=== PATIENT | female | born 1950 | race Caucasian/White ===

== ENCOUNTER 2019-01-14 00:47 | Emergency (ER) | payer BC, MEDICARE ==
--- NOTE | 2019-01-14 01:26 | EDM.PDOC ---
ED HPI GENERAL MEDICAL PROBLEM - General Chief Complaint: Cardiovascular Problem Stated Complaint: IRREGULAR HEARTBEAT Time Seen by Provider: 01/14/19 01:25 Source of Information: Reports: Patient, Old Records, RN History Limitations: Reports: No Limitations - History of Present Illness INITIAL COMMENTS - FREE TEXT/NARRATIVE: 68 yo female presents with a rapid, irregular pulse since about 11:30 pm tonight. She has had this several times in the past, but when she tried to come to the ER 2 yrs ago with this her rhythm reverted back to normal as she approached the hospital. She has on her own been taking a baby aspirin every other day. Her [id number] Score is 2 for her age and sex. No chest pain or SOB. She is taking she says a slightly larger dose of thyroid medicine than was advised due to weight gain on the lesser dose. She does not drink ETOH heavy. She has no known valvular heart dz. Onset Date: 01/13/19 Onset Time: 23:30 Duration: Minutes:, Constant Location: Reports: Chest Quality: Reports: Other (no pain) Severity: Moderate Improves with: Reports: None, Other (in the past this would resolve on its own. 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: Other (see below) (none) - Related Data Allergies Allergy/AdvReac Type Severity Reaction Status Date / Time No Known Allergies Allergy Verified 01/14/19 01:09 Home Meds: Home Meds Aspirin [Halfprin] 81 mg PO ASDIRECTED 01/14/19 [History] Levothyroxine 175 mcg PO DAILY 01/14/19 [History] Past Medical History Cardiovascular History: Reports: High Cholesterol Endocrine/Metabolic History: Reports: Hypothyroidism Social & Family History - Tobacco Use Smoking Status *Q: Never Smoker - Recreational Drug Use Recreational Drug Use: No ED ROS GENERAL - Review of Systems Review Of Systems: See Below Constitutional: Reports: No Symptoms HEENT: Reports: No Symptoms Respiratory: Reports: No Symptoms Cardiovascular: Reports: Palpitations Endocrine: Reports: No Symptoms GI/Abdominal: Reports: No Symptoms : Reports: No Symptoms Musculoskeletal: Reports: No Symptoms Skin: Reports: No Symptoms Neurological: Reports: No Symptoms Psychiatric: Reports: No Symptoms ED EXAM, GENERAL - Physical Exam Exam: See Below Exam Limited By: No Limitations General Appearance: Alert, WD/WN, No Apparent Distress Eye Exam: Bilateral Eye: Normal Inspection Ears: Normal External Exam, Normal Canal, Hearing Grossly Normal Ear Exam: Bilateral Ear: Auricle Normal, Canal Normal Nose: Normal Inspection, No Blood Throat/Mouth: Normal Inspection, Normal Lips, Normal Oropharynx, Normal Voice, No Airway Compromise Head: Atraumatic, Normocephalic Neck: Normal Inspection Respiratory/Chest: No Respiratory Distress, Lungs Clear, Normal Breath Sounds, No Accessory Muscle Use Cardiovascular: Regular Rate, Rhythm, No Edema GI/Abdominal: Normal Bowel Sounds, Soft, Non-Tender, No Distention Back Exam: Normal Inspection. No: CVA Tenderness (R), CVA Tenderness (L) Extremities: Normal Inspection, Normal Range of Motion, Non-Tender, No Pedal Edema Neurological: Alert, Oriented, CN II-XII Intact, Normal Cognition, No Motor/ Sensory Deficits Psychiatric: Normal Affect, Normal Mood Skin Exam: Warm, Dry, Intact, Normal Color, No Rash EKG INTERPRETATION EKG Date: 01/14/19 Time: 01:10 Rhythm: A-Fib Rate (Beats/Min): 136 [place]: Normal P-Wave: Absent QRS: Normal ST-T: Normal QT: Normal Comparison: Change From Previous EKG (afib has replaced NSR.) Course - Vital Signs Last Recorded V/S: Last Vital Signs Temp 36.1 C 01/14/19 01:11 Pulse 116 H 01/14/19 02:30 Resp 16 01/14/19 02:30 BP 153/79 H 01/14/19 02:30 Pulse Ox 97 01/14/19 02:30 - Orders/Labs/Meds Orders: Active Orders 24 hr Category Date Time Status Cardiac Monitoring [RC] .As Directed Care 01/14/19 00:52 Active EKG Documentation Completion [RC] ASDIRECTED Care 01/14/19 01:58 Active Sodium Chloride 0.9% [Saline Flush] Med 01/14/19 01:50 Active 10 ml FLUSH ASDIRECTED PRN Saline Lock Insert [OM.PC] Routine Oth 01/14/19 01:50 Ordered EKG 12 Lead [EK] Routine Ther 01/14/19 01:58 Ordered Medication Orders Sodium Chloride (Saline Flush) 10 ml FLUSH ASDIRECTED PRN PRN Reason: Keep Vein Open Last Admin: 01/14/19 02:04 Dose: 10 ml Labs: Laboratory Tests 01/14/19 01/14/19 Range/Units 01:40 01:40 Sodium 142 (140-148) mmol/L Potassium 3.9 (3.6-5.2) mmol/L Chloride 104 (100-108) mmol/L Carbon Dioxide 27 (21-32) mmol/L Anion Gap 10.6 (5.0-14.0) mmol/L BUN 13 (7-18) mg/dL Creatinine 0.8 (0.6-1.0) mg/dL Est Cr Clr Drug Dosing TNP Estimated GFR (MDRD) > 60 (>60) Glucose 129 H (74-106) mg/dL Calcium 9.4 (8.5-10.1) mg/dL Troponin I < 0.017 (0.000-0.056) ng/mL TSH, Ultra Sensitive 0.137 L (0.358-3.740) uIU/mL Meds: Medications Generic Name Dose Route Start Last Admin Trade Name Freq PRN Reason Stop Dose Admin Sodium Chloride 10 ml 01/14/19 01:50 01/14/19 02:04 Saline Flush FLUSH 10 ml ASDIRECTED PRN Administration Keep Vein Open Discontinued Medications Generic Name Dose Route Start Last Admin Trade Name Freq PRN Reason Stop Dose Admin Apixaban 5 mg 01/14/19 01:57 01/14/19 02:04 Eliquis PO 01/14/19 01:58 5 mg ONETIME ONE Administration Metoprolol Tartrate 5 mg 01/14/19 01:50 01/14/19 02:03 Lopressor IVPUSH 01/14/19 01:51 5 mg ONETIME ONE Administration Metoprolol Tartrate 5 mg 01/14/19 02:14 01/14/19 02:20 Lopressor IVPUSH 01/14/19 02:15 5 mg ONETIME ONE Administration Metoprolol Tartrate 50 mg 01/14/19 02:14 01/14/19 02:19 Lopressor PO 01/14/19 02:15 50 mg ONETIME ONE Administration Metoprolol Tartrate 50 mg 01/14/19 03:01 Lopressor PO 01/14/19 03:02 ONETIME ONE Departure - Departure Time of Disposition: 03:15 Disposition: Home, Self-Care 01 Condition: Good Clinical Impression: Atrial fibrillation with RVR Instructions: Atrial Fibrillation, [id number], Preventing Atrial Fibrillation -Related Stroke Referrals: Ev Cruz PA [Primary Care Provider] - Forms: ED Department Discharge Additional Instructions: Take Eliquis 5 mg roughly every 12 hrs. Take metoprolol succinate 200 mg today late morning and then roughly every 24 hrs. Return for an ECHO(echocardiogram). 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 Call [phone] for the [facility] in [place]. Asked for cardiology and you will be transferred. This is where you can set up an appt. If your appt is more than a week in the future, then make an appt with your family doctor for recheck in the interim. - My Orders Last 24 Hours: My Active Orders 01/14/19 00:52 Cardiac Monitoring [RC] .As Directed 01/14/19 01:50 Sodium Chloride 0.9% [Saline Flush] 10 ml FLUSH ASDIRECTED PRN Saline Lock Insert [OM.PC] Routine 01/14/19 01:58 EKG Documentation Completion [RC] ASDIRECTED EKG 12 Lead [EK] Routine - Assessment/Plan Last 24 Hours: My Active Orders 01/14/19 00:52 Cardiac Monitoring [RC] .As Directed 01/14/19 01:50 Sodium Chloride 0.9% [Saline Flush] 10 ml FLUSH ASDIRECTED PRN Saline Lock Insert [OM.PC] Routine 01/14/19 01:58 EKG Documentation Completion [RC] ASDIRECTED EKG 12 Lead [EK] Routine
[2019-01-14] MEDS ORDERED: Metoprolol Tartrate 5 MG/5 ML SDV IVPUSH ONE ×2 (01:50→02:14)
[2019-01-14] MEDS ORDERED: Sodium Chloride 0.9% 10 ML Syringe FLUSH PRN (01:50)
[2019-01-14] MEDS ORDERED: Apixaban 5 MG Tab PO ONE (01:57)
[2019-01-14] MEDS ORDERED: Metoprolol Tartrate 50 MG Tab PO ONE ×2 (02:14→03:01)
[2019-01-14 03:09] VITALS: BP 158/82
== END 2019-01-14 03:42 | disposition home or self-care (01) ==
LOC: JP.ED 00:47
DX: I48.91 Unspecified atrial fibrillation (principal); E78.00 Pure hypercholesterolemia, unspecified; E03.9 Hypothyroidism, unspecified; Z79.82 Long term (current) use of aspirin; Z79.899 Other long term (current) drug therapy
CPT/HCPCS: 36415; 80048; 84443; 84484; 93005; 96374; 99285-25; A9270-GY; J3490

== ENCOUNTER 2020-06-28 18:57 | Emergency (ER) | payer MEDICARE ==
--- NOTE | 2020-06-28 19:23 | EDM.PDOC ---
ED HPI GENERAL MEDICAL PROBLEM - General Chief Complaint: Cardiovascular Problem Stated Complaint: AFIB Time Seen by Provider: 06/28/20 19:22 Source of Information: Reports: Patient, Significant Other History Limitations: Reports: No Limitations - History of Present Illness INITIAL COMMENTS - FREE TEXT/NARRATIVE: presents w/palpations. Took metoprolol and T4 today. Onset: Today Onset Date: 06/28/20 Onset Time: 15:00 Severity: Moderate Associated Symptoms: Reports: No Other Symptoms. Denies: Diaphoresis, Nausea/Vomiting, Shortness of Breath, Syncope, Weakness - Related Data Allergies Allergy/AdvReac Type Severity Reaction Status Date / Time No Known Allergies Allergy Verified 06/28/20 19:15 Home Meds: Home Meds Apixaban [Eliquis] 5 mg PO Q12H #60 tablet 01/14/19 [Rx] Levothyroxine 163 mcg PO DAILY 01/14/19 [History] Albuterol Sulfate [Proair Hfa] 2 puff INH QID PRN 06/28/20 [History] Metoprolol Succinate [Toprol XL] 100 mg PO DAILY 06/28/20 [History] Past Medical History Cardiovascular History: Reports: High Cholesterol Endocrine/Metabolic History: Reports: Hypothyroidism Social & Family History - Tobacco Use Smoking Status *Q: Never Smoker - Caffeine Use Caffeine Use: Reports: None - Recreational Drug Use Recreational Drug Use: No ED ROS GENERAL - Review of Systems Review Of Systems: See Below Constitutional: Denies: Fever, Weakness, Diaphoresis HEENT: Reports: No Symptoms Respiratory: Reports: No Symptoms Cardiovascular: Reports: Other (tachycardia). Denies: Chest Pain, Dyspnea on Exertion Endocrine: Reports: No Symptoms GI/Abdominal: Denies: Abdominal Pain ED EXAM, GENERAL - Physical Exam Exam: See Below Exam Limited By: No Limitations General Appearance: Alert, No Apparent Distress Throat/Mouth: Normal Inspection Head: Atraumatic Neck: Normal Inspection Respiratory/Chest: No Respiratory Distress, Lungs Clear Cardiovascular: Normal Peripheral Pulses, Tachycardia GI/Abdominal: Soft, Non-Tender Extremities: Normal Inspection, Normal Range of Motion, No Pedal Edema Neurological: Alert, Oriented Psychiatric: Normal Affect, Normal Mood Skin Exam: Warm, Dry EKG INTERPRETATION EKG Date: 06/28/20 Time: 19:15 Rhythm: A-Fib Rate (Beats/Min): 134 [place]: Normal EKG Interpretation Comments: At. Fib w/ RVR and occasional PVC. Course - Vital Signs Last Recorded V/S: Last Vital Signs Temp 36.8 C 06/28/20 19:20 Pulse 70 06/28/20 20:30 Resp 17 06/28/20 19:52 BP 123/62 06/28/20 20:30 Pulse Ox 97 06/28/20 19:52 - Orders/Labs/Meds Orders: Active Orders 24 hr Category Date Time Status EKG Documentation Completion [RC] ASDIRECTED Care 06/28/20 19:35 Active Sodium Chloride 0.9% [Normal Saline] 1,000 ml Med 06/28/20 19:45 Active IV ASDIRECTED EKG 12 Lead [EK] Urgent Ther 06/28/20 19:34 Ordered Medication Orders Sodium Chloride (Normal Saline) 1,000 mls @ 500 mls/hr IV ASDIRECTED ROSSY Last Admin: 06/28/20 19:52 Dose: 500 mls/hr Documented by: JANAY Labs: Laboratory Tests 06/28/20 06/28/20 06/28/20 Range/Units 19:40 19:40 19:40 WBC 7.8 (4.5-11.0) K/uL RBC 5.03 (3.30-5.50) M/uL Hgb 14.6 (12.0-15.0) g/dL Hct 45.1 (36.0-48.0) % MCV 90 (80-98) fL MCH 29 (27-31) pg MCHC 32 (32-36) % Plt Count 196 (150-400) K/uL PT 10.6 (9.5-12.0) sec INR 0.97 (0.80-1.20) Sodium (140-148) mmol/L Potassium (3.6-5.2) mmol/L Chloride (100-108) mmol/L Carbon Dioxide (21-32) mmol/L Anion Gap (5.0-14.0) mmol/L BUN (7-18) mg/dL Creatinine (0.6-1.0) mg/dL Est Cr Clr Drug Dosing mL/min Estimated GFR (MDRD) (>60) Glucose (74-106) mg/dL Lactic Acid (0.4-2.0) mmol/L Calcium (8.5-10.1) mg/dL Magnesium (1.8-2.4) mg/dL Total Bilirubin (0.2-1.0) mg/dL AST (15-37) U/L ALT (12-78) U/L Alkaline Phosphatase (46-116) U/L Troponin I 0.024 (0.000-0.056) ng/mL NT-Pro-B Natriuret Pep (5-125) pg/mL Total Protein (6.4-8.2) g/dL Albumin (3.4-5.0) g/dL Globulin (2.3-3.5) g/dL Albumin/Globulin Ratio (1.2-2.2) Free T4 (0.76-1.46) ng/dL TSH, Ultra Sensitive (0.358-3.740) uIU/mL Urine Color (YELLOW) Urine Appearance (CLEAR) Urine pH (5.0-8.0) Ur Specific [place] (1.008-1.030) Urine Protein (NEGATIVE) mg/dL Urine Glucose (UA) (NEGATIVE) mg/dL Urine Ketones (NEGATIVE) mg/dL Urine Occult Blood (NEGATIVE) Urine Nitrite (NEGATIVE) Urine Bilirubin (NEGATIVE) Urine Urobilinogen (0.2-1.0) EU/dL Ur Leukocyte Esterase (NEGATIVE) Urine RBC (0-5) Urine WBC (0-5) Ur Epithelial Cells Amorphous Sediment Urine Bacteria Urine Mucus Urine Opiates Screen (NEGATIVE) Ur Oxycodone Screen (NEGATIVE) Urine Methadone Screen (NEGATIVE) Ur Propoxyphene Screen (NEGATIVE) Ur Barbiturates Screen (NEGATIVE) Ur Tricyclics Screen (NEGATIVE) Ur Phencyclidine Scrn (NEGATIVE) Ur Amphetamine Screen (NEGATIVE) U Methamphetamines Scrn (NEGATIVE) Urine MDMA Screen (NEGATIVE) U Benzodiazepines Scrn (NEGATIVE) U Cocaine Metab Screen (NEGATIVE) U Marijuana (THC) Screen (NEGATIVE) 06/28/20 06/28/20 06/28/20 Range/Units 19:40 19:40 19:40 WBC (4.5-11.0) K/uL RBC (3.30-5.50) M/uL Hgb (12.0-15.0) g/dL Hct (36.0-48.0) % MCV (80-98) fL MCH (27-31) pg MCHC (32-36) % Plt Count (150-400) K/uL PT (9.5-12.0) sec INR (0.80-1.20) Sodium 143 (140-148) mmol/L Potassium 3.8 (3.6-5.2) mmol/L Chloride 105 (100-108) mmol/L Carbon Dioxide 27 (21-32) mmol/L Anion Gap 11.1 (5.0-14.0) mmol/L BUN 13 (7-18) mg/dL Creatinine 0.9 (0.6-1.0) mg/dL Est Cr Clr Drug Dosing 49.49 mL/min Estimated GFR (MDRD) > 60 (>60) Glucose 111 H (74-106) mg/dL Lactic Acid 1.1 (0.4-2.0) mmol/L Calcium 9.1 (8.5-10.1) mg/dL Magnesium 2.3 (1.8-2.4) mg/dL Total Bilirubin 0.4 (0.2-1.0) mg/dL AST 20 (15-37) U/L ALT 31 (12-78) U/L Alkaline Phosphatase 101 (46-116) U/L Troponin I (0.000-0.056) ng/mL NT-Pro-B Natriuret Pep 441 H (5-125) pg/mL Total Protein 7.3 (6.4-8.2) g/dL Albumin 3.8 (3.4-5.0) g/dL Globulin 3.5 (2.3-3.5) g/dL Albumin/Globulin Ratio 1.1 L (1.2-2.2) Free T4 1.84 H (0.76-1.46) ng/dL TSH, Ultra Sensitive 0.030 L (0.358-3.740) uIU/mL Urine Color (YELLOW) Urine Appearance (CLEAR) Urine pH (5.0-8.0) Ur Specific [place] (1.008-1.030) Urine Protein (NEGATIVE) mg/dL Urine Glucose (UA) (NEGATIVE) mg/dL Urine Ketones (NEGATIVE) mg/dL Urine Occult Blood (NEGATIVE) Urine Nitrite (NEGATIVE) Urine Bilirubin (NEGATIVE) Urine Urobilinogen (0.2-1.0) EU/dL Ur Leukocyte Esterase (NEGATIVE) Urine RBC (0-5) Urine WBC (0-5) Ur Epithelial Cells Amorphous Sediment Urine Bacteria Urine Mucus Urine Opiates Screen (NEGATIVE) Ur Oxycodone Screen (NEGATIVE) Urine Methadone Screen (NEGATIVE) Ur Propoxyphene Screen (NEGATIVE) Ur Barbiturates Screen (NEGATIVE) Ur Tricyclics Screen (NEGATIVE) Ur Phencyclidine Scrn (NEGATIVE) Ur Amphetamine Screen (NEGATIVE) U Methamphetamines Scrn (NEGATIVE) Urine MDMA Screen (NEGATIVE) U Benzodiazepines Scrn (NEGATIVE) U Cocaine Metab Screen (NEGATIVE) U Marijuana (THC) Screen (NEGATIVE) 06/28/20 06/28/20 Range/Units 19:48 19:48 WBC (4.5-11.0) K/uL RBC (3.30-5.50) M/uL Hgb (12.0-15.0) g/dL Hct (36.0-48.0) % MCV (80-98) fL MCH (27-31) pg MCHC (32-36) % Plt Count (150-400) K/uL PT (9.5-12.0) sec INR (0.80-1.20) Sodium (140-148) mmol/L Potassium (3.6-5.2) mmol/L Chloride (100-108) mmol/L Carbon Dioxide (21-32) mmol/L Anion Gap (5.0-14.0) mmol/L BUN (7-18) mg/dL Creatinine (0.6-1.0) mg/dL Est Cr Clr Drug Dosing mL/min Estimated GFR (MDRD) (>60) Glucose (74-106) mg/dL Lactic Acid (0.4-2.0) mmol/L Calcium (8.5-10.1) mg/dL Magnesium (1.8-2.4) mg/dL Total Bilirubin (0.2-1.0) mg/dL AST (15-37) U/L ALT (12-78) U/L Alkaline Phosphatase (46-116) U/L Troponin I (0.000-0.056) ng/mL NT-Pro-B Natriuret Pep (5-125) pg/mL Total Protein (6.4-8.2) g/dL Albumin (3.4-5.0) g/dL Globulin (2.3-3.5) g/dL Albumin/Globulin Ratio (1.2-2.2) Free T4 (0.76-1.46) ng/dL TSH, Ultra Sensitive (0.358-3.740) uIU/mL Urine Color Yellow (YELLOW) Urine Appearance Clear (CLEAR) Urine pH 5.5 (5.0-8.0) Ur Specific [place] 1.015 (1.008-1.030) Urine Protein Negative (NEGATIVE) mg/dL Urine Glucose (UA) Negative (NEGATIVE) mg/dL Urine Ketones Trace H (NEGATIVE) mg/dL Urine Occult Blood Negative (NEGATIVE) Urine Nitrite Negative (NEGATIVE) Urine Bilirubin Negative (NEGATIVE) Urine Urobilinogen 0.2 (0.2-1.0) EU/dL Ur Leukocyte Esterase Negative (NEGATIVE) Urine RBC 0-5 (0-5) Urine WBC 0-5 (0-5) Ur Epithelial Cells Rare Amorphous Sediment Not seen Urine Bacteria Not seen Urine Mucus Not seen Urine Opiates Screen Negative (NEGATIVE) Ur Oxycodone Screen Negative (NEGATIVE) Urine Methadone Screen Negative (NEGATIVE) Ur Propoxyphene Screen Negative (NEGATIVE) Ur Barbiturates Screen Negative (NEGATIVE) Ur Tricyclics Screen Negative (NEGATIVE) Ur Phencyclidine Scrn Negative (NEGATIVE) Ur Amphetamine Screen Negative (NEGATIVE) U Methamphetamines Scrn Negative (NEGATIVE) Urine MDMA Screen Negative (NEGATIVE) U Benzodiazepines Scrn Negative (NEGATIVE) U Cocaine Metab Screen Negative (NEGATIVE) U Marijuana (THC) Screen Negative (NEGATIVE) Meds: Medications Generic Name Dose Route Start Last Admin Trade Name Freq PRN Reason Stop Dose Admin Sodium Chloride 1,000 mls @ 500 mls/hr 06/28/20 19:45 06/28/20 19:52 Normal Saline IV 500 mls/hr ASDIRECTED ROSSY Administration Discontinued Medications Generic Name Dose Route Start Last Admin Trade Name Freq PRN Reason Stop Dose Admin Diltiazem HCl 20 mg 06/28/20 19:36 06/28/20 19:53 Diltiazem IVPUSH 06/28/20 19:37 20 mg ONETIME ONE Administration Metoprolol Succinate 50 mg 06/28/20 20:22 06/28/20 20:30 Toprol Xl PO 06/28/20 20:23 50 mg ONETIME ONE Administration Departure - Departure Time of Disposition: 20:59 Disposition: Home, Self-Care 01 Clinical Impression: Atrial fibrillation with RVR Instructions: Atrial Fibrillation Referrals: Anthony,Ev, PA [Primary Care Provider] - Forms: ED Department Discharge Additional Instructions: decrease levothyroxine to 150mcg/day. See manager of construction or family literacy coordinator within the next week. Sepsis Event Note (ED) - Evaluation Sepsis Screening Result: No Definite Risk - Focused Exam Vital Signs: Vital Signs Temp Pulse Pulse Resp BP BP Pulse Ox 06/28/20 20:30 70 123/62 06/28/20 19:52 112 H 17 141/79 H 97 06/28/20 19:21 128 H 06/28/20 19:20 36.8 C 101 H 16 129/73 96 06/28/20 19:12 36.8 C 101 H 16 129/73 96 - My Orders Last 24 Hours: My Active Orders 06/28/20 19:34 EKG 12 Lead [EK] Urgent 06/28/20 19:35 EKG Documentation Completion [RC] ASDIRECTED 06/28/20 19:45 Sodium Chloride 0.9% [Normal Saline] 1,000 ml IV ASDIRECTED - Assessment/Plan Last 24 Hours: My Active Orders 06/28/20 19:34 EKG 12 Lead [EK] Urgent 06/28/20 19:35 EKG Documentation Completion [RC] ASDIRECTED 06/28/20 19:45 Sodium Chloride 0.9% [Normal Saline] 1,000 ml IV ASDIRECTED
[2020-06-28] MEDS ORDERED: Diltiazem 25 MG/5 ML SDV IVPUSH ONE (19:36)
[2020-06-28] MEDS ORDERED: Sodium Chloride 0.9% 1,000 ML IV SCH (19:45)
[2020-06-28] MEDS ORDERED: Metoprolol Succinate 50 MG Tab.ER PO ONE (20:22)
[2020-06-28 21:00] VITALS: BP 129/68; PULSE 67
== END 2020-06-28 21:15 | disposition home or self-care (01) ==
LOC: JP.ED 18:57
DX: I48.91 Unspecified atrial fibrillation (principal); E03.9 Hypothyroidism, unspecified; Z79.899 Other long term (current) drug therapy; R06.02 Shortness of breath
CPT/HCPCS: 36415; 80053; 80305; 81001; 83605; 83735; 83880; 84439; 84443; 84484; 85027; 85610; 93005; 93010; 96374; 99283; 99285; A9270; J3490; J7030

== ENCOUNTER 2020-11-04 09:43 | Emergency (ER) | payer MEDICARE ==
[2020-11-04] MEDS ORDERED: Sodium Chloride 0.9% 10 ML Syringe FLUSH PRN (10:40)
[2020-11-04] MEDS ORDERED: Metoprolol Tartrate 5 MG/5 ML SDV IVPUSH ONE ×2 (10:40→10:54)
--- NOTE | 2020-11-04 10:56 | EDM.PDOC ---
ED HPI GENERAL MEDICAL PROBLEM - General Chief Complaint: Cardiovascular Problem Stated Complaint: AFIB Time Seen by Provider: 11/04/20 10:30 Source of Information: Reports: Patient, Old Records, RN History Limitations: Reports: No Limitations - History of Present Illness INITIAL COMMENTS - FREE TEXT/NARRATIVE: 70 yo female with a recent past dx of afib and who is on Eliquis and metoprolol comes in saying her heart has been irregular for the past several hrs, started in the night as it has in the past. No SOB or chest pain. Has not missed any of her meds. She has a thyroid condition, but is followed by endocrinology out of [facility] for that. Onset: Sudden Onset Date: 11/04/20 Duration: Hour(s):, Constant Location: Reports: Chest Quality: Reports: Other (no pain) Severity: Mild Improves with: Reports: None Worsens with: Reports: Other (unknown) Context: Reports: Other (See HPI) Associated Symptoms: Reports: No Other Symptoms, Other (aware of irregularity). 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: Other (see below) (none) - Related Data Allergies Allergy/AdvReac Type Severity Reaction Status Date / Time No Known Allergies Allergy Verified 06/28/20 19:15 Home Meds: Home Meds Apixaban [Eliquis] 5 mg PO Q12H #60 tablet 01/14/19 [Rx] Levothyroxine 150 mcg PO DAILY 01/14/19 [History] Albuterol Sulfate [Proair Hfa] 2 puff INH QID PRN 06/28/20 [History] Metoprolol Succinate [Toprol XL] 100 mg PO DAILY 06/28/20 [History] Past Medical History Cardiovascular History: Reports: Afib, High Cholesterol Endocrine/Metabolic History: Reports: Hypothyroidism - Infectious Disease History Infectious Disease History: Reports: Chicken Pox Social & Family History - Tobacco Use Tobacco Use Status *Q: Never Tobacco User - Caffeine Use Caffeine Use: Reports: None - Recreational Drug Use Recreational Drug Use: No ED ROS GENERAL - Review of Systems Review Of Systems: See Below Constitutional: Reports: No Symptoms HEENT: Reports: No Symptoms Respiratory: Reports: No Symptoms Cardiovascular: Reports: Palpitations Endocrine: Reports: No Symptoms GI/Abdominal: Reports: No Symptoms : Reports: No Symptoms Musculoskeletal: Reports: No Symptoms Skin: Reports: No Symptoms Neurological: Reports: No Symptoms Psychiatric: Reports: No Symptoms ED EXAM, GENERAL - Physical Exam Exam: See Below Exam Limited By: No Limitations General Appearance: Alert, WD/WN, No Apparent Distress Eye Exam: Bilateral Eye: Normal Inspection Ears: Normal External Exam, Normal Canal, Hearing Grossly Normal Ear Exam: Bilateral Ear: Auricle Normal, Canal Normal Nose: Normal Inspection, No Blood Throat/Mouth: Normal Inspection, Normal Lips, Normal Oropharynx, Normal Voice, No Airway Compromise Head: Atraumatic Neck: Normal Inspection Respiratory/Chest: No Respiratory Distress, Lungs Clear, Normal Breath Sounds, No Accessory Muscle Use Cardiovascular: No Edema, Tachycardia, Irregularly Irregular GI/Abdominal: Normal Bowel Sounds, Soft, Non-Tender, No Distention Back Exam: Normal Inspection Extremities: Normal Inspection Neurological: Alert, Oriented, CN II-XII Intact, Normal Cognition, No Motor/Sensory Deficits Psychiatric: Normal Affect, Normal Mood Skin Exam: Warm, Dry, Intact, Normal Color, No Rash #1 Interpretation EKG Date: 11/04/20 Time: 09:50 Rhythm: A-Fib Rate (Beats/Min): 125 Dumont: Normal P-Wave: Absent QRS: Normal ST-T: Normal QT: Normal Comparison: No Change Course - Vital Signs Last Recorded V/S: Last Vital Signs Temp 36.8 C 11/04/20 09:52 Pulse 91 11/04/20 11:47 Resp 16 11/04/20 09:52 BP 119/68 11/04/20 11:47 Pulse Ox 99 11/04/20 09:52 - Orders/Labs/Meds Orders: Active Orders 24 hr Category Date Time Status Cardiac Monitoring [RC] .As Directed Care 11/04/20 10:40 Active EKG Documentation Completion [RC] ASDIRECTED Care 11/04/20 11:18 Active Sodium Chloride 0.9% [Saline Flush] Med 11/04/20 10:40 Active 10 ml FLUSH ASDIRECTED PRN Saline Lock Insert [OM.PC] Routine Oth 11/04/20 10:40 Ordered EKG 12 Lead [EK] Routine Ther 11/04/20 11:17 Ordered Medication Orders Sodium Chloride (Saline Flush) 10 ml FLUSH ASDIRECTED PRN PRN Reason: Keep Vein Open Last Admin: 11/04/20 10:59 Dose: 10 ml Documented by: [id number] Meds: Medications Generic Name Dose Route Start Last Admin Trade Name Freq PRN Reason Stop Dose Admin Sodium Chloride 10 ml 11/04/20 10:40 11/04/20 10:59 Saline Flush FLUSH 10 ml ASDIRECTED PRN Administration Keep Vein Open Discontinued Medications Generic Name Dose Route Start Last Admin Trade Name Freq PRN Reason Stop Dose Admin Metoprolol Tartrate 5 mg 11/04/20 10:40 11/04/20 10:44 Lopressor IVPUSH 11/04/20 10:41 5 mg ONETIME ONE Administration Metoprolol Tartrate 5 mg 11/04/20 10:54 11/04/20 10:59 Lopressor IVPUSH 11/04/20 10:55 5 mg ONETIME ONE Administration Metoprolol Tartrate 25 mg 11/04/20 11:09 11/04/20 11:13 Lopressor PO 11/04/20 11:10 25 mg ONETIME ONE Administration Metoprolol Tartrate 25 mg 11/04/20 11:43 11/04/20 11:47 Lopressor PO 11/04/20 11:44 25 mg ONETIME ONE Administration Departure - Departure Time of Disposition: 12:10 Disposition: Home, Self-Care 01 Condition: Good Clinical Impression: Atrial fibrillation with RVR Referrals: Ev Cruz PA [Primary Care Provider] - Forms: ED Department Discharge Additional Instructions: Increase your metoprolol succinate to 150 mg at bedtime. You may take an extra 25 mg if your resting HR is over 100. Likewise, reduce your dose by 25 if your HR is less than 60 at rest. Return as needed. Continue your other meds as before. Sepsis Event Note (ED) - Evaluation Sepsis Screening Result: No Definite Risk - Focused Exam Vital Signs: Vital Signs Temp Pulse Pulse Resp BP BP Pulse Ox 11/04/20 11:47 91 119/68 11/04/20 11:13 94 122/80 11/04/20 10:59 97 130/79 11/04/20 10:44 94 143/71 H 11/04/20 09:52 36.8 C 123 H 16 150/80 H 99 11/04/20 09:51 36.8 C 123 H 16 150/80 H 99 - My Orders Last 24 Hours: My Active Orders 11/04/20 10:40 Cardiac Monitoring [RC] .As Directed Sodium Chloride 0.9% [Saline Flush] 10 ml FLUSH ASDIRECTED PRN Saline Lock Insert [OM.PC] Routine 11/04/20 11:17 EKG 12 Lead [EK] Routine 11/04/20 11:18 EKG Documentation Completion [RC] ASDIRECTED - Assessment/Plan Last 24 Hours: My Active Orders 11/04/20 10:40 Cardiac Monitoring [RC] .As Directed Sodium Chloride 0.9% [Saline Flush] 10 ml FLUSH ASDIRECTED PRN Saline Lock Insert [OM.PC] Routine 11/04/20 11:17 EKG 12 Lead [EK] Routine 11/04/20 11:18 EKG Documentation Completion [RC] ASDIRECTED
[2020-11-04] MEDS ORDERED: Metoprolol Tartrate 25 MG Tab PO ONE ×3 (11:09→12:04)
[2020-11-04 12:12] VITALS: BP 126/82; PULSE 101
== END 2020-11-04 12:35 | disposition home or self-care (01) ==
LOC: JP.ED 09:43
DX: I48.91 Unspecified atrial fibrillation (principal); E03.9 Hypothyroidism, unspecified; Z79.01 Long term (current) use of anticoagulants; Z79.899 Other long term (current) drug therapy
CPT/HCPCS: 93005; 96374; 99284; A9270; J3490; 93010

== ENCOUNTER 2021-06-15 13:02 | Emergency (ER) | payer MEDICARE ==
[2021-06-15] MEDS ORDERED: methylPREDNISolone Sodium Succinate 125 MG/2 ML SDV IVPUSH ONE (13:09)
[2021-06-15] MEDS ORDERED: diphenhydrAMINE 50 MG/ML SDV IVPUSH ONE (13:09)
[2021-06-15] MEDS ORDERED: EPINEPHrine 1 MG/ML SDV SUBCUT ONE (13:09)
[2021-06-15 14:12] VITALS: BP 123/59; PULSE 51
--- NOTE | 2021-06-15 15:04 | EDM.PDOC ---
ED HPI GENERAL MEDICAL PROBLEM - General Chief Complaint: Allergic Reaction Stated Complaint: BEE STING Time Seen by Provider: 06/15/21 13:25 Source of Information: Reports: Patient History Limitations: Reports: No Limitations - History of Present Illness INITIAL COMMENTS - FREE TEXT/NARRATIVE: 70-year-old female with no previous bee sting allergy reactions got stung several times on her hands roughly 45 minutes ago. She went into the pharmacy to get some Benadryl or antihistamine but then started developing a lump in her throat and some reddish allergy-like reaction to the skin on her chest, back, face, and her eye started feeling puffy. They recommended she be seen in the emergency room. She is not short of breath but feels a lump in her throat. Onset: Sudden (Symptoms started fairly suddenly 45 minutes ago after being stung by bees on her hands) Location: Reports: Generalized Hand Pain Score (Numeric/FACES): 8 - Related Data Allergies Allergy/AdvReac Type Severity Reaction Status Date / Time No Known Allergies Allergy Verified 06/15/21 13:22 Home Meds: Home Meds Apixaban [Eliquis] 5 mg PO Q12H #60 tablet 01/14/19 [Rx] Albuterol Sulfate [Proair Hfa] 2 puff INH QID PRN 06/28/20 [History] Levothyroxine 150 mcg PO ACBREAKFAST 12/13/20 [History] Magnesium Oxide 250 mg PO BEDTIME 12/13/20 [History] Metoprolol Succinate [Toprol Xl] 150 mg PO DAILY 12/13/20 [History] Cholecalciferol (Vitamin D3) [Vitamin D] 5,000 unit PO DAILY 02/14/21 [History] Past Medical History Cardiovascular History: Reports: Afib, High Cholesterol Endocrine/Metabolic History: Reports: Hypothyroidism - Infectious Disease History Infectious Disease History: Reports: Chicken Pox Social & Family History - Tobacco Use Tobacco Use Status *Q: Never Tobacco User - Caffeine Use Caffeine Use: Reports: None - Recreational Drug Use Recreational Drug Use: No ED ROS ALLERGIC REACTION - Review of Systems Review Of Systems: See Below Constitutional: Reports: Malaise. Denies: Fever, Chills HEENT: Reports: Throat Pain Respiratory: Denies: Shortness of Breath Cardiovascular: Reports: Other (She has a fairly extensive cardiac history with recurring atrial fibrillation and arrhythmias). Denies: Chest Pain GI/Abdominal: Denies: Abdominal Pain, Nausea, Vomiting Musculoskeletal: Reports: Other (Hands are painful from her stings) Skin: Reports: Erythema (Diffuse erythema of the hands where she was stung, also hive-like rash in the axillary areas, around her neck and forehead, and scattered on her back and waist) Neurological: Denies: Headache Psychiatric: Reports: Anxiety ED EXAM GENERAL NO PERIP PULSE - Physical Exam Exam: See Below Exam Limited By: No Limitations General Appearance: Alert, No Apparent Distress, Anxious Eye Exam: Bilateral Eye: Other (Slight periorbital erythema is present, otherwise normal) Throat/Mouth: Normal Inspection (No mucosal or uvular swelling on exam) Head: Atraumatic Neck: Supple, Non-Tender Respiratory/Chest: No Respiratory Distress, Lungs Clear Cardiovascular: Regular Rate, Rhythm. No: Tachycardia GI/Abdominal: Soft, Non-Tender Extremities: Other (Significant erythema of the hands with extension of hive- like rash of the arms, lower extremities a small amount of rashes developing on the upper legs posteriorly) Neurological: Alert, Oriented, No Motor/Sensory Deficits Skin Exam: Warm, Dry, Other (Diffuse urticarial lesions are developing on the axillary areas of the body, around the waistline, upper posterior legs, scattered on the trunk and face) Course - Vital Signs Last Recorded V/S: Last Vital Signs Temp 97.8 F 06/15/21 13:18 Pulse 51 L 06/15/21 14:07 Resp 14 06/15/21 14:07 BP 123/59 L 06/15/21 14:07 Pulse Ox 96 06/15/21 14:07 - Orders/Labs/Meds Meds: Medications Discontinued Medications Generic Name Dose Route Start Last Admin Trade Name Hien PRN Reason Stop Dose Admin Diphenhydramine HCl 25 mg 06/15/21 13:09 06/15/21 13:15 Diphenhydramine 50 Mg/Ml Sdv IVPUSH 06/15/21 13:10 25 mg ONETIME ONE Administration Epinephrine HCl 0.3 mg 06/15/21 13:09 06/15/21 13:14 Epinephrine 1 Mg/Ml Sdv SUBCUT 06/15/21 13:10 0.3 mg ONETIME ONE Administration Methylprednisolone Sodium Succinate 125 mg 06/15/21 13:09 06/15/21 13:16 Methylprednisolone Sodium Succinate 125 Mg/2 Ml Sdv IVPUSH 06/15/21 13:10 125 mg ONETIME ONE Administration - Re-Assessments/Exams Free Text/Narrative Re-Assessment/Exam: 06/15/21 15:02 Due to the apparent systemic reaction to the bee stings, an IV was started after the patient was given 0.3 mg of subcu epinephrine. She was given 25 mg of IV Benadryl along with 125 mg of IV Solu-Medrol. She was kept on cardiac monitoring for the next hour and a half and did very well. The lump or full sensation in her throat lasted quite a while but went away just prior to discharge. She was discharged with a prescription for adult EpiPen to be used as directed. She can continue with Benadryl every 4-6 hours. Return if worsening despite treatment. Departure - Departure Time of Disposition: 15:38 Disposition: Home, Self-Care 01 Clinical Impression: Allergy to bee sting - Discharge Information Instructions: Allergies, Adult, [id number] Referrals: Ev Cruz PA [Primary Care Provider] - Forms: ED Department Discharge Care Plan Goals: Continue with Benadryl 25 to 50 mg every 4 hours as needed for persistent rash or itching. Return anytime if worsening such as difficulty breathing or uncontrolled pain. Anti-inflammatory such as ibuprofen or naproxen will be helpful for pain from the stings. Local ice may be helpful as well. Fill prescription for EpiPen and use as directed if needed. Sepsis Event Note (ED) - Evaluation Sepsis Screening Result: No Definite Risk - Focused Exam Vital Signs: Vital Signs Temp Pulse Resp BP Pulse Ox 06/15/21 14:07 51 L 14 123/59 L 96 06/15/21 13:37 52 L 12 131/64 95 06/15/21 13:18 97.8 F 74 13 103/53 L 93 L 06/15/21 13:07 66 103/53 L 94 L
== END 2021-06-15 15:40 | disposition home or self-care (01) ==
LOC: JP.ED 13:02
DX: T63.441A Toxic effect of venom of bees, accidental (unintentional), initial encounter (principal); I48.91 Unspecified atrial fibrillation; E78.00 Pure hypercholesterolemia, unspecified; E03.9 Hypothyroidism, unspecified; Z79.01 Long term (current) use of anticoagulants; Z79.899 Other long term (current) drug therapy
CPT/HCPCS: 96372; 96374; 96375; 99282; J0171; J1200; J2930; 99284

== ENCOUNTER 2022-06-19 09:02 | Emergency (ER) | payer MEDICARE ==
[2022-06-19 10:21] LABS: ESTIMATED GFR 61 mL/min (>60)
[2022-06-19 11:13] VITALS: BP 145/70; PULSE 73
== END 2022-06-19 11:56 | disposition home or self-care (01) ==
LOC: JP.ED 09:02
DX: K57.92 Diverticulitis of intestine, part unspecified, without perforation or abscess without bleeding (principal); E03.9 Hypothyroidism, unspecified; Z79.01 Long term (current) use of anticoagulants; Z79.899 Other long term (current) drug therapy
CPT/HCPCS: 36415; 74176; 74176-26; 80053; 82272; 85025; 99283; 99284

== ENCOUNTER 2023-06-25 14:14 | Emergency (ER) | payer MEDICARE ==
[2023-06-25 15:35] LABS: BASOPHILS ABSOLUTE AUTO 0.04 K/uL (0.00-0.10); BASOPHILS PERCENT AUTO 0.4 % (0.1-1.3); EOSINOPHILS ABSOLUTE AUTO 0.17 K/uL (0.00-0.40); EOSINOPHILS PERCENT AUTO 1.7 % (0.0-5.4); HEMATOCRIT 40.4 % (34.3-46.0); HEMOGLOBIN 13.5 g/dL (11.2-15.5); IMMATURE GRAN ABSOLUTE AUTO 0.03 K/uL (0.00-0.23); IMMATURE GRAN PERCENT AUTO 0.3 % (0.0-0.7); LYMPHOCYTES ABSOLUTE AUTO 2.48 K/uL (0.8-3.3); LYMPHOCYTES PERCENT AUTO 25.2 % (11.4-47.7); MEAN CORPUSCULAR HEMOGLOBIN 30.2 pg (31.6-35.5); MEAN CORPUSCULAR HGB CONC 33.4 g/dL (31.6-35.5); MEAN CORPUSCULAR VOLUME 90.4 fL (81.4-99.0); MONOCYTES ABSOLUTE AUTO 0.49 K/uL (0.20-0.90); NEUTROPHILS ABSOLUTE AUTO 6.63 K/uL (1.0-7.6); NEUTROPHILS PERCENT AUTO 67.4 % (40.0-78.1); PLATELET COUNT,PLT 194 K/uL (130-375); RED BLOOD CELL COUNT 4.47 M/uL (3.77-5.24); WHITE BLOOD CELL COUNT,WBC 9.8 K/uL (3.2-11.0)
[2023-06-25 16:02] LABS: A/G RATIO 1.1 (1.2-2.2); ALANINE AMINOTRANSFERASE,ALT 29 U/L (12-78); ALBUMIN 3.3 g/dL (3.4-5.0); ALKALINE PHOSPHATASE 85 U/L (46-116); ASPARTATE AMNIOTRANSFERASE,AST 21 U/L (15-37); BILIRUBIN TOTAL 0.7 mg/dL (0.2-1.0); BLOOD UREA NITROGEN,BUN 14 mg/dL (7-18); CALCIUM 8.9 mg/dL (8.5-10.1); CARBON DIOXIDE,CO2 31 mmol/L (21-32); CHLORIDE,CL 105 mmol/L (100-108); EST CRCL DRUG DOSING (CG) 46.43 mL/min; ESTIMATED GFR 60 mL/min (>60); GLUCOSE RANDOM 94 mg/dL (74-106); POTASSIUM,K 4.6 mmol/L (3.6-5.2); PROTEIN TOTAL,TP 6.2 g/dL (6.4-8.2); SODIUM,NA 142 mmol/L (140-148); TROPONIN I HIGH SENSITIVITY 24.5 pg/mL (<=60.3)
[2023-06-25 16:32] VITALS: BP 127/66; PULSE 61
== END 2023-06-25 17:26 | disposition home or self-care (01) ==
LOC: JP.ED 14:14
DX: I48.0 Paroxysmal atrial fibrillation (principal); E78.00 Pure hypercholesterolemia, unspecified; E03.9 Hypothyroidism, unspecified; Z91.030 Bee allergy status; Z79.01 Long term (current) use of anticoagulants; Z79.899 Other long term (current) drug therapy
CPT/HCPCS: 36415; 80053; 83735; 84484; 85025; 93005; 93010; 99283; 99285

== ENCOUNTER 2025-10-08 07:47 | Day surgery (SDC) | payer MEDICARE ==
[2025-10-08] MEDS: Sodium Chloride 0.9% 10 ML Syringe FLUSH PRN (08:37)
[2025-10-08 09:02] VITALS: BP 180/82; PULSE 56
== END 2025-10-08 09:15 | disposition home or self-care (01) ==
LOC: JP.SDS 07:47
PROVIDERS: ATTEND Ophthalmology
DX: H25.11 Age-related nuclear cataract, right eye (principal); I48.91 Unspecified atrial fibrillation; E78.00 Pure hypercholesterolemia, unspecified; E03.9 Hypothyroidism, unspecified; E66.9 Obesity, unspecified; Z79.01 Long term (current) use of anticoagulants; Z68.30 Body mass index [BMI] 30.0-30.9, adult; Z91.030 Bee allergy status; Z79.899 Other long term (current) drug therapy; Z79.890 Hormone replacement therapy
CPT/HCPCS: V2632

== ENCOUNTER 2025-11-05 07:55 | Day surgery (SDC) | payer MEDICARE ==
[2025-11-05] MEDS ORDERED: Sodium Chloride 0.9% 10 ML Syringe FLUSH PRN (09:00)
[2025-11-05 09:31] VITALS: BP 143/70; PULSE 57
== END 2025-11-05 09:35 | disposition home or self-care (01) ==
LOC: JP.SDS 07:55
PROVIDERS: ATTEND Ophthalmology
DX: H25.12 Age-related nuclear cataract, left eye (principal); I48.91 Unspecified atrial fibrillation; E03.9 Hypothyroidism, unspecified; E66.9 Obesity, unspecified; Z79.01 Long term (current) use of anticoagulants; Z91.030 Bee allergy status; Z79.899 Other long term (current) drug therapy; Z79.890 Hormone replacement therapy
CPT/HCPCS: 66984; V2632; 00142-QZ